=== PATIENT | male | born 1990 | race Caucasian/White ===

== ENCOUNTER 2024-08-19 22:37 | Inpatient (IN) ==
[2024-08-19] MEDS: ONDANSETRON 4 MG/2 ML VIAL IVP STA (23:58)
[2024-08-19] MEDS: SODIUM CHLORIDE 0.9% 500 ML IV ONE (23:58)
[2024-08-20 00:11] LABS: BASOPHILS # (AUTO) 0.1 10^3/uL (0.0-0.1); BASOPHILS % (AUTO) 0.5 %; EOSINOPHILS % (AUTO) 0.1 %; HCT - HEMATOCRIT 61.6 % (42.0-52.0); HGB - HEMOGLOBIN 19.7 g/dL (14.0-18.0); LYMPHOCYTES # (AUTO) 1.3 10^3/uL (1.5-3.5); LYMPHOCYTES % (AUTO) 7.1 %; MEAN CORPUSCULAR VOLUME 84.5 fL (80.0-94.0); MEAN PLATELET VOLUME 12.1 fL (7.4-11.4); MONOCYTES # (AUTO) 0.8 10^3/uL (0.0-1.0); MONOCYTES % (AUTO) 4.4 %; NEUTROPHILS # (AUTO) 15.8 10^3/uL (1.5-6.6); NEUTROPHILS % (AUTO) 87.5 %; PLT - PLATELET COUNT 288 10^3/uL (130-450); RED BLOOD COUNT 7.29 10^6/uL (4.70-6.10); RED CELL DISTRIBUTION WIDTH 15.5 % (12.0-15.0)
[2024-08-20 00:16] LABS: BILIRUBIN,URINE NEGATIVE (NEGATIVE); GLUCOSE, URINE (UA) >=1000 mg/dL (NEGATIVE); KETONES,URINE (UA) 40 mg/dL (NEGATIVE); LEUKOCYTE ESTERASE, URINE NEGATIVE (NEGATIVE); NITRITE,URINE NEGATIVE (NEGATIVE); OCCULT BLOOD,URINE SMALL (NEGATIVE); PH,URINE 5.5 PH (5.0-7.5); PROTEIN,URINE NEGATIVE (NEGATIVE); UROBILINOGEN,URINE 0.2 (NORMAL) E.U./dL (NORMAL)
[2024-08-20 00:18] LABS: CLARITY,URINE CLEAR (CLEAR)
[2024-08-20 00:25] LABS: BACTERIA,URINE Few /HPF (None Seen); SQUAMOUS EPITHELIAL CELL,UR FEW Squamous (<= Few); WBC,URINE 0-3 /HPF (0-3)
[2024-08-20 00:41] LABS: ALBUMIN 4.4 g/dL (3.2-5.5); ALBUMIN/GLOBULIN RATIO 1.2 (1.0-2.2); BILIRUBIN,TOTAL 0.5 mg/dL (0.2-1.0); CREATININE 2.4 mg/dL (0.6-1.3); POTASSIUM 5.9 mmol/L (3.5-4.5)
[2024-08-20 00:57] LABS: B. PARAPERTUSSIS- RESP PCR PAN NOT DETECTED; B. PERTUSSIS- RESP PCR PANEL NOT DETECTED; C. PNEUMONIAE- RESP PCR PANEL NOT DETECTED; CORONAVIRUS 229E-RESP PCR NOT DETECTED; CORONAVIRUS HKU1-RESP PCR NOT DETECTED; CORONAVIRUS NL63-RESP PCR NOT DETECTED; CORONAVIRUS OC43-RESP PCR NOT DETECTED; HUMAN METAPNEUMOVIRUS NOT DETECTED; INFLUENZA A- RESP PCR PANEL NOT DETECTED; INFLUENZA B - RESP PCR PANEL NOT DETECTED; M. PNEUMONIAE- RESP PCR PANEL NOT DETECTED; PARAINFLUENZA VIRUS 1 NOT DETECTED; PARAINFLUENZA VIRUS 2 NOT DETECTED; PARAINFLUENZA VIRUS 3 NOT DETECTED; PARAINFLUENZA VIRUS 4 NOT DETECTED; RHINOVIRUS/ENTEROVIRUS NOT DETECTED; RSV- RESP PCR PANEL NOT DETECTED; SARS-CoV-2 -RESP PCR PANEL NOT DETECTED
[2024-08-20] MEDS: INSULIN REGULAR, HUMAN 300 UNIT/3 ML PEN IVP STA (01:14)
[2024-08-20] MEDS: INSULIN REGULAR IN 0.9 % NS 100 UNIT/100 ML BAG IV STA (01:16)
[2024-08-20 01:20] LABS: VBG PCO2 29.1 mmHg (41-51)
[2024-08-20] MEDS: SODIUM CHLORIDE 0.9% 1,000 ML IV SCH ×2 (01:20→04:00)
[2024-08-20 01:21] LABS: VBG BASE EXCESS -15.9 mmol/L (-2 - +2); VBG HCO3 10.6 mmol/L (23-28); VBG OXYGEN SATURATION 85.8 % (60-80); VBG PO2 56.8 mmHg (25-47); VBG TOTAL CO2 11.5 mmol/L (24-29)
[2024-08-20 01:23] LABS: VBG PH 7.179 (7.31-7.41)
[2024-08-20 01:36] LABS: ESTIMATED AVERAGE GLUCOSE 335 mg/dL (70-100); HEMOGLOBIN A1c% 13.3 % (4.27-6.07)
[2024-08-20 01:53] LABS: ALBUMIN 3.9 g/dL (3.2-5.5); ALBUMIN/GLOBULIN RATIO 1.3 (1.0-2.2); BILIRUBIN,TOTAL 0.6 mg/dL (0.2-1.0); CALCIUM 9.7 mg/dL (8.5-10.3); CREATININE 1.9 mg/dL (0.6-1.3); MAGNESIUM 2.8 mg/dL (1.7-2.3); POTASSIUM 4.9 mmol/L (3.5-4.5)
--- NOTE | 2024-08-20 01:58 | CT Report ---
PROCEDURE: CT Abdomen/Pelvis WO INDICATIONS: Pancreatitis, new onset TECHNIQUE: A CT scan of the abdomen and pelvis was performed without the use of intravenous contrast. Images we re recorded and evaluated at appropriate window settings. Reformats: coronal and sagittal. For radiat ion dose reduction, the following was used: automated exposure control, adjustment of mA and/or kV ac cording to patient size. COMPARISON: None. FINDINGS: Image quality: Diagnostic. Lower chest: Unremarkable. Liver: No contour-deforming mass. The liver is enlarged and demonstrates diffuse fatty infiltration. Gallbladder: Within normal limits. Biliary tree: No intrahepatic or extrahepatic dilation, accounting for age. Spleen: No splenomegaly. An accessory splenule is incidentally noted along the anterior aspect of th e primary spleen. Pancreas: In this patient with this given history, scrutiny is given to the pancreas. No significant peripancreatic inflammatory change can be seen. The pancreatic duct does not appear dilated. No perip ancreatic fluid collections are seen. Adrenals: No adrenal nodule. Kidneys and ureters: No hydronephrosis. No contour-deforming mass. Stomach, bowel and peritoneum: No gastric or small bowel dilation. No abnormal wall thickening. No pa thologic free fluid. A normal appendix is seen. Lymph nodes: No central or retroperitoneal adenopathy. Vessels: No infrarenal aortic aneurysm. Reproductive organs: Unremarkable. Bladder: Bladder wall thickness is normal, accounting for underdistention. No calcified bladder stone s. Pelvic lymph nodes: No adenopathy by size criteria. Bones: No aggressive osseous abnormality. Other: There is a mild fat-containing left inguinal hernia. IMPRESSION: No significant pancreas abnormality is seen on this noncontrast study. No dilated loops of small bowel are seen. Negative for hydronephrosis. Additional findings: Enlarged, fatty infiltrated liver Accessory splenule Normal appendix Mild fat-containing left inguinal hernia. Reviewed by: Krystian Parker MD on 08/20/2024 12:57 AM [facility] Approved by: Krystian Parker MD on 08/20/2024 12:57 AM [facility] Station ID: [id number]
--- NOTE | 2024-08-20 02:25 | ED Physician Documentation ---
History of Present Illness Stated complaint Stated Complaint: FEVER/VOMITING Chief complaint Chief Complaint: Abd Pain Additonal information Additional information: 34-year-old male presents with chief complaint of nausea and vomiting. Accompanied by father who is present at bedside. 4-day history of persistent nausea and vomiting. Denies fever, chest, abdominal pain, diarrhea. Denies unusual foods or known sick contacts. Review of Systems Status of ROS: 10 or more systems reviewed and unremarkable except as noted in history and below Constitutional Denies: Fever or Chills Cardiovascular Denies: chest pain or shortness of breath with exertion Respiratory Denies: Shortness of breath Gastrointestinal Reports: Nausea, Vomiting and Poor appetite; Denies: Abdominal pain, Abdominal distention or Diarrhea Genitourinary Denies: Painful urination Meds/Allgy Allergies Allergies Allergy/AdvReac Type Severity Reaction Status Date / Time No Known Drug Allergies Allergy Verified 08/19/24 22:42 [facility] Social History Social History (Updated 08/20/24 @ 03:10 by Fer Madrid MD) Smoking Status: Current every day smoker Number of Years Smoked: 9 How many cigarettes a day do you smoke? (20 cigarettes=1 Pk): 1 Do you dip or chew tobacco?: No Do you vape?: No Patient requests smoking cessation consult: No Initiate information on smoking cessation: No Relationship: Level: Dependent Substance Use: denies use POLST Patient has POLST: No Exam Exam Vital Signs Temperature 36.5 C 08/20/24 02:33 Pulse Rate 118 H 08/20/24 03:16 Respiratory Rate 20 08/20/24 03:16 Blood Pressure 128/89 08/20/24 03:16 O2 Saturation 96 08/20/24 03:16 Constitutional Patient ill-appearing, laying on side in gurney, makes poor eye contact. HENMT normocephalic and head/scalp atraumatic Eyes PERRL Neck/C-Spine visual inspection normal and trachea midline Lymph no lymphadenopathy noted Chest inspection of chest normal Respiratory breath sounds equal bilaterally, normal respiratory effort, clear to auscultation bilaterally, no wheezes and no rales Cardiovascular normal heart rate noted, regular rhythm noted, no gallop and no murmur Gastrointestinal abdomen soft to palpation, nontender to palpation, nontender to percussion, nondistended and normoactive bowel sounds Genitourinary no CVA tenderness Extremities normal to inspection Psychiatry mental status grossly normal Skin skin color normal Results Vitals Vitals: Vital Signs - 24 hr 08/19/24 22:42 08/19/24 23:07 08/20/24 00:45 Temperature 36.5 C Temperature Source Tympanic Pulse Rate 110 H 123 H 117 H Respiratory Rate 20 16 26 H Blood Pressure 129/91 H 135/89 H 146/100 H O2 Saturation 96 96 96 O2 Source Room air Room air Room air Pain Intensity 4 0 08/20/24 02:00 08/20/24 02:33 Temperature 36.5 C Temperature Source Temporal Artery Scan Pulse Rate 123 H 119 H Respiratory Rate 24 20 Blood Pressure 125/87 138/81 H O2 Saturation 95 95 O2 Source Room air Room air Pain Intensity 0 0 Oxygen O2 Source Room air EKG (time done) 0058: EKG releavant findings:: EKG personally interpreted by author of this note. Relevant findings are: Sinus rhythm with rate 122 bpm. Normal axis. Normal AK, QRS intervals. QTc prolonged at [address] segment elevations or T wave inversions. Labs Labs: Laboratory Tests 08/19/24 08/19/24 08/20/24 00:00 23:40 00:03 WBC 18.0 H RBC 7.29 H Hgb 19.7 H Hct 61.6 H MCV 84.5 MCH 27.0 MCHC 32.0 RDW 15.5 H Plt Count 288 MPV 12.1 H Neut # (Auto) 15.8 H Lymph # (Auto) 1.3 L Hunt # (Auto) 0.8 Eos # (Auto) 0.0 Baso # (Auto) 0.1 Absolute Nucleated RBC 0.00 Nucleated RBC % 0.0 VBG pH VBG pCO2 VBG pO2 VBG HCO3 VBG Total CO2 VBG O2 Saturation VBG Base Excess Sodium 119 L* Potassium 5.9 H Chloride 80 L* Carbon Dioxide 10 L* Anion Gap 29.0 H BUN 40 H Creatinine 2.4 H Estimated GFR (MDRD) 31 L Glucose 1360 H* Estimat Average Glucose Hemoglobin A1c % Calcium 11.0 H Magnesium Total Bilirubin 0.5 AST 15 ALT 36 Alkaline Phosphatase 135 H Total Protein 8.0 Albumin 4.4 Globulin 3.6 Albumin/Globulin Ratio 1.2 Lipase 1294 H Urine Color YELLOW Urine Clarity CLEAR Urine pH 5.5 Ur Specific [place] 1.010 Urine Protein NEGATIVE Urine Glucose (UA) >=1000 H Urine Ketones 40 H Urine Occult Blood SMALL H Urine Nitrite NEGATIVE Urine Bilirubin NEGATIVE Urine Urobilinogen 0.2 (NORMAL) Ur Leukocyte Esterase NEGATIVE Urine RBC 6-10 H Urine WBC 0-3 Ur Squamous Epith Cells FEW Squamous Urine Bacteria Few Ur Microscopic Review INDICATED Urine Culture Comments NOT INDICATED Nasal Adenovirus (PCR) NOT DETECTED Nasal B. parapertussis DNA (PCR) NOT DETECTED Nasal Coronavir 229E PCR NOT DETECTED Nasal Coronavir HKU1 PCR NOT DETECTED Nasal Coronavir NL63 PCR NOT DETECTED Nasal Coronavir OC43 PCR NOT DETECTED Nasal Enterovir/Rhinovir PCR NOT DETECTED Nasal Influenza B PCR NOT DETECTED Nasal Influenza A PCR NOT DETECTED Nasal Parainfluen 1 PCR NOT DETECTED Nasal Parainfluen 2 PCR NOT DETECTED Nasal Parainfluen 3 PCR NOT DETECTED Nasal Parainfluen 4 PCR NOT DETECTED Nasal RSV (PCR) NOT DETECTED Nasal B.pertussis DNA PCR NOT DETECTED Nasal C.pneumoniae (PCR) NOT DETECTED Richard Human Metapneumo PCR NOT DETECTED Nasal M.pneumoniae (PCR) NOT DETECTED Nasal SARS-CoV-2 (PCR) NOT DETECTED 08/20/24 01:09 WBC RBC Hgb Hct MCV MCH MCHC RDW Plt Count MPV Neut # (Auto) Lymph # (Auto) Hunt # (Auto) Eos # (Auto) Baso # (Auto) Absolute Nucleated RBC Nucleated RBC % VBG pH 7.179 L* VBG pCO2 29.1 L VBG pO2 56.8 H VBG HCO3 10.6 L VBG Total CO2 11.5 L VBG O2 Saturation 85.8 H VBG Base Excess -15.9 L Sodium 128 L Potassium 4.9 H Chloride 91 L Carbon Dioxide 10 L* Anion Gap 27.0 H BUN 38 H Creatinine 1.9 H Estimated GFR (MDRD) 41 L Glucose 1123 H* Estimat Average Glucose 335 H Hemoglobin A1c % 13.3 H Calcium 9.7 Magnesium 2.8 H Total Bilirubin 0.6 AST 12 ALT 34 Alkaline Phosphatase 121 Total Protein 7.0 Albumin 3.9 Globulin 3.1 Albumin/Globulin Ratio 1.3 Lipase 1117 H Urine Color Urine Clarity Urine pH Ur Specific [place] Urine Protein Urine Glucose (UA) Urine Ketones Urine Occult Blood Urine Nitrite Urine Bilirubin Urine Urobilinogen Ur Leukocyte Esterase Urine RBC Urine WBC Ur Squamous Epith Cells Urine Bacteria Ur Microscopic Review Urine Culture Comments Nasal Adenovirus (PCR) Nasal B. parapertussis DNA (PCR) Nasal Coronavir 229E PCR Nasal Coronavir HKU1 PCR Nasal Coronavir NL63 PCR Nasal Coronavir OC43 PCR Nasal Enterovir/Rhinovir PCR Nasal Influenza B PCR Nasal Influenza A PCR Nasal Parainfluen 1 PCR Nasal Parainfluen 2 PCR Nasal Parainfluen 3 PCR Nasal Parainfluen 4 PCR Nasal RSV (PCR) Nasal B.pertussis DNA PCR Nasal C.pneumoniae (PCR) Richard Human Metapneumo PCR Nasal M.pneumoniae (PCR) Nasal SARS-CoV-2 (PCR) PD Medical Decision Making ED course Complexity details: reviewed results, re-evaluated patient, considered differential, d/w patient and d/w family Drug Therapy Requiring Monitoring for Toxicity: Insulin ED course: 34-year-old presents with 4-day history nausea vomiting. Low-level tachycardia and somewhat ill-appearing on arrival but otherwise hemodynamically stable. Chest and abdominal exam are benign. His lab subsequently identified him is severely hyperglycemic and in diabetic ketoacidosis. IV hydration and DKA protocol is initiated. Interestingly he does have mild elevation in lipase. There is no epigastric tenderness and no findings of pancreatitis on CT imaging of the abdomen. His care is discussed with the telehospitalist service who graciously agree to hospitalize to our intensive care unit. Critical Care Time(min): 31 Comments: Management of diabetic ketoacidosis Time Includes: Direct patient care, Reassess patient, Document care and Coordinate care Data interpretation: Labs and See progress note Discharge Plan Discharge Patient Disposition: 66 [facility] DC/Xfer Condition: Critical Clinical Impression: Elevated lipase DKA (diabetic ketoacidosis) Qualifiers: Diabetes mellitus type: other specified (including GINNY) Diabetes mellitus complication detail: without coma Qualified Code(s): E13.10 - Other specified diabetes mellitus with ketoacidosis without coma Interventions: ED Admission Assessment Last Done: 08/20/24 04:12
[2024-08-20] MEDS ORDERED: SODIUM CHLORIDE FLUSH 0.9% 10 ML SYRINGE IVP PRN (02:37)
[2024-08-20] MEDS ORDERED: ONDANSETRON 4 MG/2 ML VIAL IVP PRN (02:37)
[2024-08-20] MEDS ORDERED: MORPHINE 10 MG/ML VIAL IVP PRN (02:44)
--- NOTE | 2024-08-20 02:58 | HISTORY & PHYSICAL EXAMINATION ---
Chief Complaint Chief Complaint Chief Complaint: Nausea and vomiting History of Present Illness History of Present Illness HPI Comment/Other: 34 Y old male with no significant PMH came with c/o nausea, vomiting, for about 1 week Denies fever, RAINEY, chest pain, SOB,abdominal pain , diarrhea, constipation, symptoms On presntation, pt was tachycardic Labs showed blood glucose > 1300, HCO3 10, anion gap 27, lipase > 1000 CT abdomen and pelvis showed no acute findings In ER, pt was given IVF and started on insulin gtt per DKA protocol Pt is admitted due to DKA and acute pancreatitis Review of Systems Status of ROS: 10 or more systems reviewed and unremarkable except as noted in history and below PFSH Social History Social History Smoking Status: Unknown if ever smoked Relationship: Do you feel safe in your home environment?: Yes Suffered physical, verbal, emotional, or financial abuse?: No POLST Patient has POLST: No Meds/Allgy Allergies Allergies Allergy/AdvReac Type Severity Reaction Status Date / Time No Known Drug Allergies Allergy Verified 08/19/24 22:42 Exam Exam Vital Signs Temperature 36.5 C 08/20/24 02:33 Pulse Rate 119 H 08/20/24 02:33 Respiratory Rate 20 08/20/24 02:33 Blood Pressure 138/81 H 08/20/24 02:33 O2 Saturation 95 08/20/24 02:33 Constitutional normal general appearance HENMT normocephalic Eyes PERRL Neck/C-Spine abnormal to visual inspection Chest inspection of chest normal Respiratory breath sounds equal bilaterally Cardiovascular tachycardia Gastrointestinal nontender to palpation Extremities normal to inspection Neurology no focal motor deficit noted Skin no rash Conclusion/Plan Problem List (1) DKA (diabetic ketoacidosis): Plan: A: DKA Acute pancreatitis Nausea, vomiting Abdominal pain Hyponatremia Dehydartion MARY Plan: Admit in ICU Start DKA protocol Insulin infusion per protocol strat NS @ 150 cc/h Monitor blood glucose q1h Monitor BMP q2h Morphine iv prn Zofran iv prn DVT prophylaxic: SCD Full code Pt is admitted as inpatient as more than 2 midnight stay is expected Qualifiers: Diabetes mellitus complication detail: without coma Diabetes mellitus type: other specified (including GINNY) Qualified Code(s): E13.10 - Other specified diabetes mellitus with ketoacidosis without coma Lab Results 08/19/24 00:00 08/20/24 01:09
[2024-08-20 03:59] LABS: CALCIUM 9.6 mg/dL (8.5-10.3); CREATININE 1.8 mg/dL (0.6-1.3); MAGNESIUM 2.9 mg/dL (1.7-2.3); POTASSIUM 3.8 mmol/L (3.5-4.5)
[2024-08-20] MEDS: POTASSIUM CHLOR 20 MEQ/100 ML 20 MEQ/100 ML BAG IV ONE (04:32)
[2024-08-20] MEDS: POTASSIUM CHLOR 10 MEQ/100 ML 10 MEQ/100 ML BAG IV SCH ×3 (04:53→22:19)
[2024-08-20 05:25] LABS: BASOPHILS # (AUTO) 0.1 10^3/uL (0.0-0.1); BASOPHILS % (AUTO) 0.4 %; HCT - HEMATOCRIT 53.1 % (42.0-52.0); HGB - HEMOGLOBIN 19.1 g/dL (14.0-18.0); LYMPHOCYTES # (AUTO) 2.2 10^3/uL (1.5-3.5); LYMPHOCYTES % (AUTO) 13.7 %; MEAN CORPUSCULAR HEMOGLOBIN 28.4 pg (27.0-31.0); MEAN PLATELET VOLUME 11.1 fL (7.4-11.4); MONOCYTES # (AUTO) 1.1 10^3/uL (0.0-1.0); MONOCYTES % (AUTO) 6.8 %; NEUTROPHILS # (AUTO) 12.5 10^3/uL (1.5-6.6); NEUTROPHILS % (AUTO) 78.7 %; PLT - PLATELET COUNT 214 10^3/uL (130-450); RED BLOOD COUNT 6.72 10^6/uL (4.70-6.10); RED CELL DISTRIBUTION WIDTH 13.6 % (12.0-15.0); WHITE BLOOD COUNT 15.9 x10^3/uL (4.8-10.8)
[2024-08-20 05:45] LABS: BILIRUBIN,URINE NEGATIVE (NEGATIVE); GLUCOSE, URINE (UA) >=1000 mg/dL (NEGATIVE); KETONES,URINE (UA) >=80 mg/dL (NEGATIVE); LEUKOCYTE ESTERASE, URINE NEGATIVE (NEGATIVE); NITRITE,URINE NEGATIVE (NEGATIVE); OCCULT BLOOD,URINE MODERATE (NEGATIVE); PH,URINE 5.5 PH (5.0-7.5); PROTEIN,URINE TRACE mg/dL (NEGATIVE); UROBILINOGEN,URINE 0.2 (NORMAL) E.U./dL (NORMAL)
[2024-08-20 05:46] LABS: CALCIUM 9.4 mg/dL (8.5-10.3); CREATININE 1.6 mg/dL (0.6-1.3); MAGNESIUM 2.7 mg/dL (1.7-2.3); POTASSIUM 4.1 mmol/L (3.5-4.5)
[2024-08-20 05:57] LABS: CLARITY,URINE CLEAR (CLEAR); HCG UR QUAL NEGATIVE
[2024-08-20 05:58] LABS: BACTERIA,URINE Few /HPF (None Seen); CASTS, URINE 0-2 Granular Casts /LPF; RBC,URINE 0-5 /HPF (0-5); SQUAMOUS EPITHELIAL CELL,UR RARE Squamous (<= Few); WBC,URINE 0-3 /HPF (0-3)
[2024-08-20] MEDS: MORPHINE 2 MG/ML CARPUJECT IVP PRN (06:16)
[2024-08-20] MEDS: SODIUM CHLORIDE FLUSH 0.9% 10 ML SYRINGE IVP SCH (09:56)
[2024-08-20] MEDS: POTASSIUM CHLOR 10 MEQ/100 ML 10 MEQ/100 ML BAG IV ONE (11:05)
[2024-08-20] MEDS ORDERED: POTASSIUM CHLOR 10 MEQ/100 ML 10 MEQ/100 ML BAG IV ONE ×3 (12:00→15:32)
[2024-08-20 14:39] LABS: MAGNESIUM 2.5 mg/dL (1.7-2.3); PHOSPHORUS 1.1 mg/dL (2.5-5.0); POTASSIUM 3.8 mmol/L (3.5-4.5)
--- NOTE | 2024-08-20 14:39 | PHARMACY PROGRESS NOTE ---
Best Possible Medication History Admit Date and Time: 08/20/24 0237 [facility] Statement: As the person ultimately responsible for medication therapy, providers are able to order a medication from an existing home medication list in [facility] via the "Reconcile Routine" prior to Confirmation of that medication by community support associate. Such practice is discouraged except when the physician, in their clinical judgment, deems that a medical need exists for a medication without regard to previous use.
--- NOTE | 2024-08-20 15:35 | PROVIDER PROGRESS NOTE ---
Subjective Prog Note Date Prog Note Date: 08/20/24 Prog Note Time: 15:23 Subjective Pt reports feeling: Improved Subjective: 34 Y old male with no significant PMH came with c/o nausea, vomiting, for about 1 week Denies fever, RAINEY, chest pain, SOB,abdominal pain , diarrhea, constipation, symptoms On presntation, pt was tachycardic Labs showed blood glucose > 1300, HCO3 10, anion gap 27, lipase > 1000 CT abdomen and pelvis showed no acute findings In ER, pt was given IVF and started on insulin gtt per DKA protocol Pt is admitted due to DKA and acute pancreatitis Patient's family reports that here is a family history of diabetes. Father and younger brother Both have diabetes type 2. 08/20/2024: Patient still obtunded and lethargic. But he is slowly improving. Current Medications Current Medications Current Medications: Current Medications Generic Name Dose Route Start Last Admin Trade Name Freq PRN Reason Stop Dose Admin Sodium Chloride 1,000 mls @ 150 mls/hr 08/20/24 03:00 08/20/24 10:45 Normal Saline 0.9% IV 150 mls/hr .[id number] EMILIANA Administration Insulin Human Regular 100 unit in 100 mls @ 9.525 mls/hr 08/20/24 03:00 Myxredlin 100 Unit/100 Ml Bag IV .[id number] EMILIANA Protocol 0.1 UNIT/KG/HR Morphine Sulfate 2 mg 08/20/24 02:58 08/20/24 06:16 Morphine 2 Mg/Ml Carpuject IVP 2 mg Q6H PRN Administration prn pain >8 Ondansetron HCl 4 mg 08/20/24 02:37 Ondansetron 4 Mg/2 Ml Vial IVP Q6HR PRN Nausea / Vomiting Sodium Chloride 10 ml 08/20/24 09:00 08/20/24 09:56 Sodium Chloride Flush 0.9% 10 Ml Syringe IVP 10 ml 0100,0900,1700 EMILIANA Administration Sodium Chloride 10 ml 08/20/24 02:37 Sodium Chloride Flush 0.9% 10 Ml Syringe IVP PRN PRN NEEDED PER PROVIDER ORDERS Objective Vital Signs/Intake & Output Reviewed Vital Signs: Yes Vital Signs: Vital Signs x48h Temp Pulse Resp BP Pulse Ox 08/20/24 11:00 122 H 21 123/82 94 08/20/24 10:00 122 H 19 124/78 94 08/20/24 08:00 36.5 C 116 H 13 112/72 92 Intake & Output: Intake & Output 08/18/24 08/19/24 08/20/24 08/21/24 05:59 05:59 05:59 05:59 Intake Total 3215 / 3215 1338 / 1338 Output Total 2125 / 2125 500 / 500 Balance 1090 / 1090 838 / 838 Weight (kg) 92 kg 92 kg Objective General Appearance: positive Lethargic Eyes Bilateral: positive Normal inspection and PERRL ENT: positive ENT inspection nml and Pharynx nml Neck: positive Nml inspection and Trachea midline Respiratory: positive Chest non-tender and No respiratory distress Cardiovascular: positive No murmur, No gallop and Other (Sinus tach) Abdomen: positive Non-tender, No organomegaly and No distention Skin: positive Color nml, No rash and Warm Extremities: positive Non-tender and Full ROM Neurologic/Psychiatric: positive Other (Unable to assess, patient is obtunded, lethargic. Unable to stay awake.) Lab Results 08/20/24 05:10 08/20/24 14:15 Other Labs: Lab Results x24hrs 08/20/24 08/20/24 08/20/24 Range/Units 15:01 14:15 14:12 WBC (4.8-10.8) x10^3/uL RBC (4.70-6.10) 10^6/uL Hgb (14.0-18.0) g/dL Hct (42.0-52.0) % MCV (80.0-94.0) fL MCH (27.0-31.0) pg MCHC (32.0-36.0) g/dL RDW (12.0-15.0) % Plt Count (130-450) 10^3/uL MPV (7.4-11.4) fL Neut # (Auto) (1.5-6.6) 10^3/uL Lymph # (Auto) (1.5-3.5) 10^3/uL [place] # (Auto) (0.0-1.0) 10^3/uL Eos # (Auto) (0.0-0.7) 10^3/uL Baso # (Auto) (0.0-0.1) 10^3/uL Absolute Nucleated RBC x10^3/uL Nucleated RBC % /100WBC VBG pH (7.31-7.41) VBG pCO2 (41-51) mmHg VBG pO2 (25-47) mmHg VBG HCO3 (23-28) mmol/L VBG Total CO2 (24-29) mmol/L VBG O2 Saturation (60-80) % VBG Base Excess (-2 - +2) mmol/L Sodium (135-145) mmol/L Potassium 3.8 (3.5-4.5) mmol/L Chloride (101-111) mmol/L Carbon Dioxide (21-32) mmol/L Anion Gap (6-13) BUN (6-20) mg/dL Creatinine (0.6-1.3) mg/dL Estimated GFR (MDRD) (>89) Glucose (74-104) mg/dL POC Whole Bld Glucose 250 316 (70-100) mg/dL Estimat Average Glucose (70-100) mg/dL Hemoglobin A1c % (4.27-6.07) % Calcium (8.5-10.3) mg/dL Phosphorus 1.1 L (2.5-5.0) mg/dL Magnesium 2.5 H (1.7-2.3) mg/dL Total Bilirubin (0.2-1.0) mg/dL AST (10-42) IU/L ALT (10-60) IU/L Alkaline Phosphatase (42-121) IU/L Total Protein (6.4-8.9) g/dL Albumin (3.2-5.5) g/dL Globulin (2.1-4.2) g/dL Albumin/Globulin Ratio (1.0-2.2) Lipase (11-82) U/L Urine Color Urine Clarity (CLEAR) Urine pH (5.0-7.5) PH Ur Specific Pace (1.002-1.030) Urine Protein (NEGATIVE) mg/dL Urine Glucose (UA) (NEGATIVE) mg/dL Urine Ketones (NEGATIVE) mg/dL Urine Occult Blood (NEGATIVE) Urine Nitrite (NEGATIVE) Urine Bilirubin (NEGATIVE) Urine Urobilinogen (NORMAL) E.U./dL Ur Leukocyte Esterase (NEGATIVE) Urine RBC (0-5) /HPF Urine WBC (0-3) /HPF Ur Squamous Epith Cells (<= Few) Urine Bacteria (None Seen) /HPF Urine Casts /LPF Ur Microscopic Review Urine Culture Comments Urine HCG, Qual Nasal Adenovirus (PCR) Nasal B. parapertussis DNA (PCR) Nasal Coronavir 229E PCR Nasal Coronavir HKU1 PCR Nasal Coronavir NL63 PCR Nasal Coronavir OC43 PCR Nasal Enterovir/Rhinovir PCR Nasal Influenza B PCR Nasal Influenza A PCR Nasal Parainfluen 1 PCR Nasal Parainfluen 2 PCR Nasal Parainfluen 3 PCR Nasal Parainfluen 4 PCR Nasal RSV (PCR) Nasal Screen MRSA (PCR) (NEGATIVE) Nasal B.pertussis DNA PCR Nasal C.pneumoniae (PCR) Richard Human Metapneumo PCR Nasal M.pneumoniae (PCR) Nasal SARS-CoV-2 (PCR) 08/20/24 08/20/24 08/20/24 Range/Units 13:12 12:07 11:09 WBC (4.8-10.8) x10^3/uL RBC (4.70-6.10) 10^6/uL Hgb (14.0-18.0) g/dL Hct (42.0-52.0) % MCV (80.0-94.0) fL MCH (27.0-31.0) pg MCHC (32.0-36.0) g/dL RDW (12.0-15.0) % Plt Count (130-450) 10^3/uL MPV (7.4-11.4) fL Neut # (Auto) (1.5-6.6) 10^3/uL Lymph # (Auto) (1.5-3.5) 10^3/uL [place] # (Auto) (0.0-1.0) 10^3/uL Eos # (Auto) (0.0-0.7) 10^3/uL Baso # (Auto) (0.0-0.1) 10^3/uL Absolute Nucleated RBC x10^3/uL Nucleated RBC % /100WBC VBG pH (7.31-7.41) VBG pCO2 (41-51) mmHg VBG pO2 (25-47) mmHg VBG HCO3 (23-28) mmol/L VBG Total CO2 (24-29) mmol/L VBG O2 Saturation (60-80) % VBG Base Excess (-2 - +2) mmol/L Sodium (135-145) mmol/L Potassium (3.5-4.5) mmol/L Chloride (101-111) mmol/L Carbon Dioxide (21-32) mmol/L Anion Gap (6-13) BUN (6-20) mg/dL Creatinine (0.6-1.3) mg/dL Estimated GFR (MDRD) (>89) Glucose (74-104) mg/dL POC Whole Bld Glucose 332 357 385 (70-100) mg/dL Estimat Average Glucose (70-100) mg/dL Hemoglobin A1c % (4.27-6.07) % Calcium (8.5-10.3) mg/dL Phosphorus (2.5-5.0) mg/dL Magnesium (1.7-2.3) mg/dL Total Bilirubin (0.2-1.0) mg/dL AST (10-42) IU/L ALT (10-60) IU/L Alkaline Phosphatase (42-121) IU/L Total Protein (6.4-8.9) g/dL Albumin (3.2-5.5) g/dL Globulin (2.1-4.2) g/dL Albumin/Globulin Ratio (1.0-2.2) Lipase (11-82) U/L Urine Color Urine Clarity (CLEAR) Urine pH (5.0-7.5) PH Ur Specific Pace (1.002-1.030) Urine Protein (NEGATIVE) mg/dL Urine Glucose (UA) (NEGATIVE) mg/dL Urine Ketones (NEGATIVE) mg/dL Urine Occult Blood (NEGATIVE) Urine Nitrite (NEGATIVE) Urine Bilirubin (NEGATIVE) Urine Urobilinogen (NORMAL) E.U./dL Ur Leukocyte Esterase (NEGATIVE) Urine RBC (0-5) /HPF Urine WBC (0-3) /HPF Ur Squamous Epith Cells (<= Few) Urine Bacteria (None Seen) /HPF Urine Casts /LPF Ur Microscopic Review Urine Culture Comments Urine HCG, Qual Nasal Adenovirus (PCR) Nasal B. parapertussis DNA (PCR) Nasal Coronavir 229E PCR Nasal Coronavir HKU1 PCR Nasal Coronavir NL63 PCR Nasal Coronavir OC43 PCR Nasal Enterovir/Rhinovir PCR Nasal Influenza B PCR Nasal Influenza A PCR Nasal Parainfluen 1 PCR Nasal Parainfluen 2 PCR Nasal Parainfluen 3 PCR Nasal Parainfluen 4 PCR Nasal RSV (PCR) Nasal Screen MRSA (PCR) (NEGATIVE) Nasal B.pertussis DNA PCR Nasal C.pneumoniae (PCR) Richard Human Metapneumo PCR Nasal M.pneumoniae (PCR) Nasal SARS-CoV-2 (PCR) 08/20/24 08/20/24 08/20/24 Range/Units 10:00 09:01 08:40 WBC (4.8-10.8) x10^3/uL RBC (4.70-6.10) 10^6/uL Hgb (14.0-18.0) g/dL Hct (42.0-52.0) % MCV (80.0-94.0) fL MCH (27.0-31.0) pg MCHC (32.0-36.0) g/dL RDW (12.0-15.0) % Plt Count (130-450) 10^3/uL MPV (7.4-11.4) fL Neut # (Auto) (1.5-6.6) 10^3/uL Lymph # (Auto) (1.5-3.5) 10^3/uL [place] # (Auto) (0.0-1.0) 10^3/uL Eos # (Auto) (0.0-0.7) 10^3/uL Baso # (Auto) (0.0-0.1) 10^3/uL Absolute Nucleated RBC x10^3/uL Nucleated RBC % /100WBC VBG pH (7.31-7.41) VBG pCO2 (41-51) mmHg VBG pO2 (25-47) mmHg VBG HCO3 (23-28) mmol/L VBG Total CO2 (24-29) mmol/L VBG O2 Saturation (60-80) % VBG Base Excess (-2 - +2) mmol/L Sodium (135-145) mmol/L Potassium 4.1 (3.5-4.5) mmol/L Chloride (101-111) mmol/L Carbon Dioxide (21-32) mmol/L Anion Gap (6-13) BUN (6-20) mg/dL Creatinine (0.6-1.3) mg/dL Estimated GFR (MDRD) (>89) Glucose (74-104) mg/dL POC Whole Bld Glucose 358 466 (70-100) mg/dL Estimat Average Glucose (70-100) mg/dL Hemoglobin A1c % (4.27-6.07) % Calcium (8.5-10.3) mg/dL Phosphorus (2.5-5.0) mg/dL Magnesium (1.7-2.3) mg/dL Total Bilirubin (0.2-1.0) mg/dL AST (10-42) IU/L ALT (10-60) IU/L Alkaline Phosphatase (42-121) IU/L Total Protein (6.4-8.9) g/dL Albumin (3.2-5.5) g/dL Globulin (2.1-4.2) g/dL Albumin/Globulin Ratio (1.0-2.2) Lipase (11-82) U/L Urine Color Urine Clarity (CLEAR) Urine pH (5.0-7.5) PH Ur Specific Pace (1.002-1.030) Urine Protein (NEGATIVE) mg/dL Urine Glucose (UA) (NEGATIVE) mg/dL Urine Ketones (NEGATIVE) mg/dL Urine Occult Blood (NEGATIVE) Urine Nitrite (NEGATIVE) Urine Bilirubin (NEGATIVE) Urine Urobilinogen (NORMAL) E.U./dL Ur Leukocyte Esterase (NEGATIVE) Urine RBC (0-5) /HPF Urine WBC (0-3) /HPF Ur Squamous Epith Cells (<= Few) Urine Bacteria (None Seen) /HPF Urine Casts /LPF Ur Microscopic Review Urine Culture Comments Urine HCG, Qual Nasal Adenovirus (PCR) Nasal B. parapertussis DNA (PCR) Nasal Coronavir 229E PCR Nasal Coronavir HKU1 PCR Nasal Coronavir NL63 PCR Nasal Coronavir OC43 PCR Nasal Enterovir/Rhinovir PCR Nasal Influenza B PCR Nasal Influenza A PCR Nasal Parainfluen 1 PCR Nasal Parainfluen 2 PCR Nasal Parainfluen 3 PCR Nasal Parainfluen 4 PCR Nasal RSV (PCR) Nasal Screen MRSA (PCR) (NEGATIVE) Nasal B.pertussis DNA PCR Nasal C.pneumoniae (PCR) Richard Human Metapneumo PCR Nasal M.pneumoniae (PCR) Nasal SARS-CoV-2 (PCR) 08/20/24 08/20/24 08/20/24 Range/Units 07:59 06:24 05:10 WBC 15.9 H (4.8-10.8) x10^3/uL RBC 6.72 H (4.70-6.10) 10^6/uL Hgb 19.1 H (14.0-18.0) g/dL Hct 53.1 H (42.0-52.0) % MCV 79.0 L (80.0-94.0) fL MCH 28.4 (27.0-31.0) pg MCHC 36.0 (32.0-36.0) g/dL RDW 13.6 (12.0-15.0) % Plt Count 214 (130-450) 10^3/uL MPV 11.1 (7.4-11.4) fL Neut # (Auto) 12.5 H (1.5-6.6) 10^3/uL Lymph # (Auto) 2.2 (1.5-3.5) 10^3/uL [place] # (Auto) 1.1 H (0.0-1.0) 10^3/uL Eos # (Auto) 0.0 (0.0-0.7) 10^3/uL Baso # (Auto) 0.1 (0.0-0.1) 10^3/uL Absolute Nucleated RBC 0.00 x10^3/uL Nucleated RBC % 0.0 /100WBC VBG pH (7.31-7.41) VBG pCO2 (41-51) mmHg VBG pO2 (25-47) mmHg VBG HCO3 (23-28) mmol/L VBG Total CO2 (24-29) mmol/L VBG O2 Saturation (60-80) % VBG Base Excess (-2 - +2) mmol/L Sodium 140 (135-145) mmol/L Potassium 4.1 (3.5-4.5) mmol/L Chloride 107 (101-111) mmol/L Carbon Dioxide 13 L (21-32) mmol/L Anion Gap 20.0 H (6-13) BUN 30 H (6-20) mg/dL Creatinine 1.6 H (0.6-1.3) mg/dL Estimated GFR (MDRD) 50 L (>89) Glucose 566 H* (74-104) mg/dL POC Whole Bld Glucose 460 496 (70-100) mg/dL Estimat Average Glucose (70-100) mg/dL Hemoglobin A1c % (4.27-6.07) % Calcium 9.4 (8.5-10.3) mg/dL Phosphorus (2.5-5.0) mg/dL Magnesium 2.7 H (1.7-2.3) mg/dL Total Bilirubin (0.2-1.0) mg/dL AST (10-42) IU/L ALT (10-60) IU/L Alkaline Phosphatase (42-121) IU/L Total Protein (6.4-8.9) g/dL Albumin (3.2-5.5) g/dL Globulin (2.1-4.2) g/dL Albumin/Globulin Ratio (1.0-2.2) Lipase 1725 H (11-82) U/L Urine Color Urine Clarity (CLEAR) Urine pH (5.0-7.5) PH Ur Specific Pace (1.002-1.030) Urine Protein (NEGATIVE) mg/dL Urine Glucose (UA) (NEGATIVE) mg/dL Urine Ketones (NEGATIVE) mg/dL Urine Occult Blood (NEGATIVE) Urine Nitrite (NEGATIVE) Urine Bilirubin (NEGATIVE) Urine Urobilinogen (NORMAL) E.U./dL Ur Leukocyte Esterase (NEGATIVE) Urine RBC (0-5) /HPF Urine WBC (0-3) /HPF Ur Squamous Epith Cells (<= Few) Urine Bacteria (None Seen) /HPF Urine Casts /LPF Ur Microscopic Review Urine Culture Comments Urine HCG, Qual Nasal Adenovirus (PCR) Nasal B. parapertussis DNA (PCR) Nasal Coronavir 229E PCR Nasal Coronavir HKU1 PCR Nasal Coronavir NL63 PCR Nasal Coronavir OC43 PCR Nasal Enterovir/Rhinovir PCR Nasal Influenza B PCR Nasal Influenza A PCR Nasal Parainfluen 1 PCR Nasal Parainfluen 2 PCR Nasal Parainfluen 3 PCR Nasal Parainfluen 4 PCR Nasal RSV (PCR) Nasal Screen MRSA (PCR) (NEGATIVE) Nasal B.pertussis DNA PCR Nasal C.pneumoniae (PCR) Richard Human Metapneumo PCR Nasal M.pneumoniae (PCR) Nasal SARS-CoV-2 (PCR) 08/20/24 08/20/24 08/20/24 Range/Units 04:55 04:00 03:00 WBC (4.8-10.8) x10^3/uL RBC (4.70-6.10) 10^6/uL Hgb (14.0-18.0) g/dL Hct (42.0-52.0) % MCV (80.0-94.0) fL MCH (27.0-31.0) pg MCHC (32.0-36.0) g/dL RDW (12.0-15.0) % Plt Count (130-450) 10^3/uL MPV (7.4-11.4) fL Neut # (Auto) (1.5-6.6) 10^3/uL Lymph # (Auto) (1.5-3.5) 10^3/uL [place] # (Auto) (0.0-1.0) 10^3/uL Eos # (Auto) (0.0-0.7) 10^3/uL Baso # (Auto) (0.0-0.1) 10^3/uL Absolute Nucleated RBC x10^3/uL Nucleated RBC % /100WBC VBG pH (7.31-7.41) VBG pCO2 (41-51) mmHg VBG pO2 (25-47) mmHg VBG HCO3 (23-28) mmol/L VBG Total CO2 (24-29) mmol/L VBG O2 Saturation (60-80) % VBG Base Excess (-2 - +2) mmol/L Sodium 136 (135-145) mmol/L Potassium 3.8 (3.5-4.5) mmol/L Chloride 102 (101-111) mmol/L Carbon Dioxide 9 L* (21-32) mmol/L Anion Gap 25.0 H (6-13) BUN 36 H (6-20) mg/dL Creatinine 1.8 H (0.6-1.3) mg/dL Estimated GFR (MDRD) 43 L (>89) Glucose 811 H* (74-104) mg/dL POC Whole Bld Glucose (70-100) mg/dL Estimat Average Glucose (70-100) mg/dL Hemoglobin A1c % (4.27-6.07) % Calcium 9.6 (8.5-10.3) mg/dL Phosphorus (2.5-5.0) mg/dL Magnesium 2.9 H (1.7-2.3) mg/dL Total Bilirubin (0.2-1.0) mg/dL AST (10-42) IU/L ALT (10-60) IU/L Alkaline Phosphatase (42-121) IU/L Total Protein (6.4-8.9) g/dL Albumin (3.2-5.5) g/dL Globulin (2.1-4.2) g/dL Albumin/Globulin Ratio (1.0-2.2) Lipase (11-82) U/L Urine Color YELLOW Urine Clarity CLEAR (CLEAR) Urine pH 5.5 (5.0-7.5) PH Ur Specific Pace 1.025 (1.002-1.030) Urine Protein TRACE (NEGATIVE) mg/dL Urine Glucose (UA) >=1000 H (NEGATIVE) mg/dL Urine Ketones >=80 H (NEGATIVE) mg/dL Urine Occult Blood MODERATE H (NEGATIVE) Urine Nitrite NEGATIVE (NEGATIVE) Urine Bilirubin NEGATIVE (NEGATIVE) Urine Urobilinogen 0.2 (NORMAL) (NORMAL) E.U./dL Ur Leukocyte Esterase NEGATIVE (NEGATIVE) Urine RBC 0-5 (0-5) /HPF Urine WBC 0-3 (0-3) /HPF Ur Squamous Epith Cells RARE Squamous (<= Few) Urine Bacteria Few (None Seen) /HPF Urine Casts 0-2 Granular Casts /LPF Ur Microscopic Review INDICATED Urine Culture Comments NOT INDICATED Urine HCG, Qual NEGATIVE Nasal Adenovirus (PCR) Nasal B. parapertussis DNA (PCR) Nasal Coronavir 229E PCR Nasal Coronavir HKU1 PCR Nasal Coronavir NL63 PCR Nasal Coronavir OC43 PCR Nasal Enterovir/Rhinovir PCR Nasal Influenza B PCR Nasal Influenza A PCR Nasal Parainfluen 1 PCR Nasal Parainfluen 2 PCR Nasal Parainfluen 3 PCR Nasal Parainfluen 4 PCR Nasal RSV (PCR) Nasal Screen MRSA (PCR) NEGATIVE (NEGATIVE) Nasal B.pertussis DNA PCR Nasal C.pneumoniae (PCR) Richard Human Metapneumo PCR Nasal M.pneumoniae (PCR) Nasal SARS-CoV-2 (PCR) 08/20/24 08/20/24 08/19/24 Range/Units 01:09 00:03 23:40 WBC (4.8-10.8) x10^3/uL RBC (4.70-6.10) 10^6/uL Hgb (14.0-18.0) g/dL Hct (42.0-52.0) % MCV (80.0-94.0) fL MCH (27.0-31.0) pg MCHC (32.0-36.0) g/dL RDW (12.0-15.0) % Plt Count (130-450) 10^3/uL MPV (7.4-11.4) fL Neut # (Auto) (1.5-6.6) 10^3/uL Lymph # (Auto) (1.5-3.5) 10^3/uL [place] # (Auto) (0.0-1.0) 10^3/uL Eos # (Auto) (0.0-0.7) 10^3/uL Baso # (Auto) (0.0-0.1) 10^3/uL Absolute Nucleated RBC x10^3/uL Nucleated RBC % /100WBC VBG pH 7.179 L* (7.31-7.41) VBG pCO2 29.1 L (41-51) mmHg VBG pO2 56.8 H (25-47) mmHg VBG HCO3 10.6 L (23-28) mmol/L VBG Total CO2 11.5 L (24-29) mmol/L VBG O2 Saturation 85.8 H (60-80) % VBG Base Excess -15.9 L (-2 - +2) mmol/L Sodium 128 L (135-145) mmol/L Potassium 4.9 H (3.5-4.5) mmol/L Chloride 91 L (101-111) mmol/L Carbon Dioxide 10 L* (21-32) mmol/L Anion Gap 27.0 H (6-13) BUN 38 H (6-20) mg/dL Creatinine 1.9 H (0.6-1.3) mg/dL Estimated GFR (MDRD) 41 L (>89) Glucose 1123 H* (74-104) mg/dL POC Whole Bld Glucose (70-100) mg/dL Estimat Average Glucose 335 H (70-100) mg/dL Hemoglobin A1c % 13.3 H (4.27-6.07) % Calcium 9.7 (8.5-10.3) mg/dL Phosphorus (2.5-5.0) mg/dL Magnesium 2.8 H (1.7-2.3) mg/dL Total Bilirubin 0.6 (0.2-1.0) mg/dL AST 12 (10-42) IU/L ALT 34 (10-60) IU/L Alkaline Phosphatase 121 (42-121) IU/L Total Protein 7.0 (6.4-8.9) g/dL Albumin 3.9 (3.2-5.5) g/dL Globulin 3.1 (2.1-4.2) g/dL Albumin/Globulin Ratio 1.3 (1.0-2.2) Lipase 1117 H (11-82) U/L Urine Color YELLOW Urine Clarity CLEAR (CLEAR) Urine pH 5.5 (5.0-7.5) PH Ur Specific Pace 1.010 (1.002-1.030) Urine Protein NEGATIVE (NEGATIVE) mg/dL Urine Glucose (UA) >=1000 H (NEGATIVE) mg/dL Urine Ketones 40 H (NEGATIVE) mg/dL Urine Occult Blood SMALL H (NEGATIVE) Urine Nitrite NEGATIVE (NEGATIVE) Urine Bilirubin NEGATIVE (NEGATIVE) Urine Urobilinogen 0.2 (NORMAL) (NORMAL) E.U./dL Ur Leukocyte Esterase NEGATIVE (NEGATIVE) Urine RBC 6-10 H (0-5) /HPF Urine WBC 0-3 (0-3) /HPF Ur Squamous Epith Cells FEW Squamous (<= Few) Urine Bacteria Few (None Seen) /HPF Urine Casts /LPF Ur Microscopic Review INDICATED Urine Culture Comments NOT INDICATED Urine HCG, Qual Nasal Adenovirus (PCR) NOT DETECTED Nasal B. parapertussis DNA (PCR) NOT DETECTED Nasal Coronavir 229E PCR NOT DETECTED Nasal Coronavir HKU1 PCR NOT DETECTED Nasal Coronavir NL63 PCR NOT DETECTED Nasal Coronavir OC43 PCR NOT DETECTED Nasal Enterovir/Rhinovir PCR NOT DETECTED Nasal Influenza B PCR NOT DETECTED Nasal Influenza A PCR NOT DETECTED Nasal Parainfluen 1 PCR NOT DETECTED Nasal Parainfluen 2 PCR NOT DETECTED Nasal Parainfluen 3 PCR NOT DETECTED Nasal Parainfluen 4 PCR NOT DETECTED Nasal RSV (PCR) NOT DETECTED Nasal Screen MRSA (PCR) (NEGATIVE) Nasal B.pertussis DNA PCR NOT DETECTED Nasal C.pneumoniae (PCR) NOT DETECTED Richard Human Metapneumo PCR NOT DETECTED Nasal M.pneumoniae (PCR) NOT DETECTED Nasal SARS-CoV-2 (PCR) NOT DETECTED 08/19/24 Range/Units 00:00 WBC 18.0 H (4.8-10.8) x10^3/uL RBC 7.29 H (4.70-6.10) 10^6/uL Hgb 19.7 H (14.0-18.0) g/dL Hct 61.6 H (42.0-52.0) % MCV 84.5 (80.0-94.0) fL MCH 27.0 (27.0-31.0) pg MCHC 32.0 (32.0-36.0) g/dL RDW 15.5 H (12.0-15.0) % Plt Count 288 (130-450) 10^3/uL MPV 12.1 H (7.4-11.4) fL Neut # (Auto) 15.8 H (1.5-6.6) 10^3/uL Lymph # (Auto) 1.3 L (1.5-3.5) 10^3/uL [place] # (Auto) 0.8 (0.0-1.0) 10^3/uL Eos # (Auto) 0.0 (0.0-0.7) 10^3/uL Baso # (Auto) 0.1 (0.0-0.1) 10^3/uL Absolute Nucleated RBC 0.00 x10^3/uL Nucleated RBC % 0.0 /100WBC VBG pH (7.31-7.41) VBG pCO2 (41-51) mmHg VBG pO2 (25-47) mmHg VBG HCO3 (23-28) mmol/L VBG Total CO2 (24-29) mmol/L VBG O2 Saturation (60-80) % VBG Base Excess (-2 - +2) mmol/L Sodium 119 L* (135-145) mmol/L Potassium 5.9 H (3.5-4.5) mmol/L Chloride 80 L* (101-111) mmol/L Carbon Dioxide 10 L* (21-32) mmol/L Anion Gap 29.0 H (6-13) BUN 40 H (6-20) mg/dL Creatinine 2.4 H (0.6-1.3) mg/dL Estimated GFR (MDRD) 31 L (>89) Glucose 1360 H* (74-104) mg/dL POC Whole Bld Glucose (70-100) mg/dL Estimat Average Glucose (70-100) mg/dL Hemoglobin A1c % (4.27-6.07) % Calcium 11.0 H (8.5-10.3) mg/dL Phosphorus (2.5-5.0) mg/dL Magnesium (1.7-2.3) mg/dL Total Bilirubin 0.5 (0.2-1.0) mg/dL AST 15 (10-42) IU/L ALT 36 (10-60) IU/L Alkaline Phosphatase 135 H (42-121) IU/L Total Protein 8.0 (6.4-8.9) g/dL Albumin 4.4 (3.2-5.5) g/dL Globulin 3.6 (2.1-4.2) g/dL Albumin/Globulin Ratio 1.2 (1.0-2.2) Lipase 1294 H (11-82) U/L Urine Color Urine Clarity (CLEAR) Urine pH (5.0-7.5) PH Ur Specific Pace (1.002-1.030) Urine Protein (NEGATIVE) mg/dL Urine Glucose (UA) (NEGATIVE) mg/dL Urine Ketones (NEGATIVE) mg/dL Urine Occult Blood (NEGATIVE) Urine Nitrite (NEGATIVE) Urine Bilirubin (NEGATIVE) Urine Urobilinogen (NORMAL) E.U./dL Ur Leukocyte Esterase (NEGATIVE) Urine RBC (0-5) /HPF Urine WBC (0-3) /HPF Ur Squamous Epith Cells (<= Few) Urine Bacteria (None Seen) /HPF Urine Casts /LPF Ur Microscopic Review Urine Culture Comments Urine HCG, Qual Nasal Adenovirus (PCR) Nasal B. parapertussis DNA (PCR) Nasal Coronavir 229E PCR Nasal Coronavir HKU1 PCR Nasal Coronavir NL63 PCR Nasal Coronavir OC43 PCR Nasal Enterovir/Rhinovir PCR Nasal Influenza B PCR Nasal Influenza A PCR Nasal Parainfluen 1 PCR Nasal Parainfluen 2 PCR Nasal Parainfluen 3 PCR Nasal Parainfluen 4 PCR Nasal RSV (PCR) Nasal Screen MRSA (PCR) (NEGATIVE) Nasal B.pertussis DNA PCR Nasal C.pneumoniae (PCR) Richard Human Metapneumo PCR Nasal M.pneumoniae (PCR) Nasal SARS-CoV-2 (PCR) Diagnostic Imaging Diagnostic Imaging Results: positive Final report reviewed Assessment/Plan Problem List (1) DKA (diabetic ketoacidosis): Impression: Continue patient on DKA protocol Monitor chemistry., Replace electrolytes as needed. This is a new onset of diabetes, Most likely type II given the family history. Patient's A1c is 13.3. Patient will need close follow-up by scrubber operator as an outpatient. Qualifiers: Diabetes mellitus complication detail: without coma Diabetes mellitus type: other specified (including GINNY) Qualified Code(s): E13.10 - Other specified diabetes mellitus with ketoacidosis without coma (2) Acute pancreatitis: Impression: Pancreatitis at the associated with the onset of diabetes. Continue DKA protocol and IV fluids. Monitor lipase. CT abdomen is negative for Associated Necrosis or abscess of the pancreas (3) Leukocytosis: Impression: Likely reactive due to DKA. No Obvious infectious etiology. Monitor
[2024-08-20] MEDS: POTASSIUM PHOSPHATE 21 MMOL in SODIUM CHLORIDE 0.9% 250 ML IV ONE (16:10)
[2024-08-20] MEDS: INSULIN REGULAR IN 0.9 % NS 100 UNIT/100 ML BAG IV SCH (16:15)
--- NOTE | 2024-08-20 17:40 | XRAY Report ---
PROCEDURE: XR Chest 1V INDICATIONS: pna TECHNIQUE: One view of the chest was acquired. COMPARISON: None FINDINGS: Surgical changes and devices: None. Lungs and pleura: No pleural effusions or pneumothorax. Lungs are clear. Mediastinum: Mediastinal contours appear normal. Heart size is normal. Bones and chest wall: No suspicious bony lesions. Overlying soft tissues appear unremarkable. IMPRESSION: No acute cardiopulmonary findings Reviewed by: Sourav Merrill MD on 08/20/2024 4:39 PM [facility]DT Approved by: Sourav Merrill MD on 08/20/2024 4:39 PM [facility]DT Station ID: [id number]
[2024-08-20 17:45] LABS: CALCIUM 9.3 mg/dL (8.5-10.3); CREATININE 1.3 mg/dL (0.6-1.3); POTASSIUM 3.8 mmol/L (3.5-4.5)
[2024-08-20 18:31] LABS: TRIGLYCERIDES 1291 mg/dL
[2024-08-20 18:37] LABS: BUN - BLOOD UREA NITROGEN 25 mg/dL (6-20); CALCIUM 9.2 mg/dL (8.5-10.3); CARBON DIOXIDE - CO2 22 mmol/L (21-32); CHLORIDE 120 mmol/L (101-111); CREATININE 1.2 mg/dL (0.6-1.3); GFR - MDRD 69 (>89); GLUCOSE 126 mg/dL (74-104); POTASSIUM 3.6 mmol/L (3.5-4.5); SODIUM 150 mmol/L (135-145)
[2024-08-20 19:14] LABS: LDL CHOLESTEROL,DIRECT 35 mg/dL (75-193)
[2024-08-20] MEDS: DEXTROSE 5%-0.45% NACL 1,000 ML IV SCH (19:45)
[2024-08-20 21:28] LABS: CALCIUM 9.1 mg/dL (8.5-10.3); CREATININE 1.2 mg/dL (0.6-1.3); POTASSIUM 3.7 mmol/L (3.5-4.5)
--- NOTE | 2024-08-20 21:53 | PROVIDER PROGRESS NOTE ---
Tactical Response Group Officer Note Tactical Response Group Officer Note Tactical Response Group Officer Note: Hospitalist cross cover Labs reviewed, bicarb 22, anion gap closed x 2. Transition to subcutaneous Lantus 10 units BID + SSI. Noted hypernatremia/hyperchloremia, likely related to IV NS resuscitation, switch to LR.
[2024-08-20] MEDS: INSULIN GLARGINE-YFGN 300 UNIT/3 ML PEN SUBQ ONE (22:16)
[2024-08-20 23:34] LABS: CALCIUM 8.8 mg/dL (8.5-10.3); CREATININE 1.2 mg/dL (0.6-1.3); POTASSIUM 3.8 mmol/L (3.5-4.5)
[2024-08-21] MEDS: LACTATED RINGERS 1,000 ML IV SCH (00:24)
[2024-08-21] MEDS: INSULIN REGULAR, HUMAN 300 UNIT/3 ML PEN SUBQ SCH (00:26)
[2024-08-21 01:43] LABS: CALCIUM 8.8 mg/dL (8.5-10.3); CREATININE 1.2 mg/dL (0.6-1.3); POTASSIUM 3.7 mmol/L (3.5-4.5)
[2024-08-21] MEDS: POTASSIUM CHLOR 10 MEQ/100 ML 10 MEQ/100 ML BAG IV SCH (02:24)
[2024-08-21 05:11] LABS: BASOPHILS # (AUTO) 0.1 10^3/uL (0.0-0.1); BASOPHILS % (AUTO) 0.4 %; EOSINOPHILS % (AUTO) 0.2 %; HCT - HEMATOCRIT 52.3 % (42.0-52.0); HGB - HEMOGLOBIN 17.9 g/dL (14.0-18.0); MEAN CORPUSCULAR HEMOGLOBIN 27.8 pg (27.0-31.0); MEAN CORPUSCULAR HGB CONC 34.2 g/dL (32.0-36.0); MEAN CORPUSCULAR VOLUME 81.2 fL (80.0-94.0); MEAN PLATELET VOLUME 11.7 fL (7.4-11.4); MONOCYTES # (AUTO) 0.7 10^3/uL (0.0-1.0); MONOCYTES % (AUTO) 4.4 %; NEUTROPHILS # (AUTO) 13.5 10^3/uL (1.5-6.6); NEUTROPHILS % (AUTO) 82.6 %; PLT - PLATELET COUNT 182 10^3/uL (130-450); RED BLOOD COUNT 6.44 10^6/uL (4.70-6.10); RED CELL DISTRIBUTION WIDTH 14.3 % (12.0-15.0); WHITE BLOOD COUNT 16.3 x10^3/uL (4.8-10.8)
[2024-08-21 05:18] LABS: CALCIUM, IONIZED 1.14 mmol/L (1.15-1.33); VBG PH 7.375 (7.31-7.41)
[2024-08-21 05:30] LABS: CREATININE 1.2 mg/dL (0.6-1.3); MAGNESIUM 2.3 mg/dL (1.7-2.3); PHOSPHORUS 2.1 mg/dL (2.5-5.0); POTASSIUM 4.3 mmol/L (3.5-4.5)
[2024-08-21] MEDS: INSULIN REGULAR, HUMAN 300 UNIT/3 ML PEN IVP ONE (06:46)
[2024-08-21] MEDS: NEUTRA-PHOS 250 MG TABLET PO SCH (08:33)
[2024-08-21] MEDS: INSULIN LISPRO 300 UNIT/3 ML PEN SUBQ SCH ×3 (08:45→17:00)
[2024-08-21] MEDS ORDERED: INSULIN GLARGINE-YFGN 300 UNIT/3 ML PEN SUBQ SCH (09:00)
[2024-08-21] MEDS ORDERED: POTASSIUM PHOSPHATE 15 MMOL in SODIUM CHLORIDE 0.9% 250 ML IV ONE (09:00)
--- NOTE | 2024-08-21 09:17 | PROVIDER PROGRESS NOTE ---
Subjective Prog Note Date Prog Note Date: 08/21/24 Prog Note Time: 09:10 Subjective Pt reports feeling: Improved Subjective: 34 Y old male with no significant PMH came with c/o nausea, vomiting, for about 1 week Denies fever, RAINEY, chest pain, SOB,abdominal pain , diarrhea, constipation, symptoms On presntation, pt was tachycardic Labs showed blood glucose > 1300, HCO3 10, anion gap 27, lipase > 1000 CT abdomen and pelvis showed no acute findings In ER, pt was given IVF and started on insulin gtt per DKA protocol Pt is admitted due to DKA and acute pancreatitis Patient's family reports that here is a family history of diabetes. Father and younger brother Both have diabetes type 2. 08/20/2024: Patient still obtunded and lethargic. But he is slowly improving. 08/21/2024: Patient states finally waking up. States that he very hungry and thirsty. Current Medications Current Medications Current Medications: Current Medications Generic Name Dose Route Start Last Admin Trade Name Freq PRN Reason Stop Dose Admin Dextrose/Sodium Chloride 1,000 mls @ 150 mls/hr 08/20/24 19:00 08/21/24 01:09 D5.45ns IV Not Given .Q6H40M EMILIANA Lactated Ringer's 1,000 mls @ 125 mls/hr 08/20/24 22:00 08/21/24 08:32 Lr IV 125 mls/hr .Q8H EMILIANA Administration Insulin Glargine-yfgn 10 unit 08/21/24 09:00 Insulin Glargine-Yfgn 300 Unit/3 Ml Pen SUBQ DAILY EMILIANA Insulin Human Lispro 2 - 10 unit 08/21/24 09:00 08/21/24 08:45 Insulin Lispro 300 Unit/3 Ml Pen SUBQ 10 unit Q4HR EMILIANA Administration Protocol Morphine Sulfate 2 mg 08/20/24 02:58 08/20/24 06:16 Morphine 2 Mg/Ml Carpuject IVP 2 mg Q6H PRN Administration prn pain >8 Ondansetron HCl 4 mg 08/20/24 02:37 Ondansetron 4 Mg/2 Ml Vial IVP Q6HR PRN Nausea / Vomiting Sodium Chloride 10 ml 08/20/24 09:00 08/21/24 08:50 Sodium Chloride Flush 0.9% 10 Ml Syringe IVP 10 ml 0100,0900,1700 EMILIANA Administration Sodium Chloride 10 ml 08/20/24 02:37 Sodium Chloride Flush 0.9% 10 Ml Syringe IVP PRN PRN NEEDED PER PROVIDER ORDERS Sodium Phosphate 250 mg 08/21/24 08:00 08/21/24 08:33 Neutra-Phos 250 Mg Tablet PO 08/21/24 10:01 250 mg Q2H EMILIANA Administration Objective Vital Signs/Intake & Output Reviewed Vital Signs: Yes Vital Signs: Vital Signs x48h Temp Pulse Resp BP Pulse Ox O2 Flow Rate 08/21/24 08:00 36.6 C 110 H 18 122/75 95 08/21/24 07:00 79 32 H 131/75 H 97 25 08/21/24 06:45 112 H 15 112/79 92 08/21/24 05:00 102 H 18 125/80 96 08/21/24 04:00 36.6 C 108 H 19 117/65 96 08/21/24 03:00 110 H 16 117/77 94 08/21/24 02:00 109 H 21 127/77 94 Intake & Output: Intake & Output 08/19/24 08/20/24 08/21/24 08/22/24 05:59 05:59 05:59 05:59 Intake Total 3215 / 3215 3628 / 3628 1400 / 1400 Output Total 2125 / 2125 825 / 825 Balance 1090 / 1090 2803 / 2803 1400 / 1400 Weight (kg) 92 kg 92 kg 94 kg Objective General Appearance: positive No acute distress and Alert Eyes Bilateral: positive Normal inspection and PERRL ENT: positive ENT inspection nml and Pharynx nml Neck: positive Nml inspection and Trachea midline Respiratory: positive Chest non-tender and No respiratory distress Cardiovascular: positive No murmur, No gallop and Other (Sinus tach) Abdomen: positive Non-tender, No organomegaly and No distention Skin: positive Color nml, No rash and Warm Extremities: positive Non-tender and Full ROM Neurologic/Psychiatric: positive Oriented x3, CN's nml (2-12) and Other Lab Results 08/21/24 04:36 08/21/24 04:36 Other Labs: Lab Results x24hrs 08/21/24 08/21/24 08/21/24 Range/Units 08:33 06:08 04:36 WBC 16.3 H (4.8-10.8) x10^3/uL RBC 6.44 H (4.70-6.10) 10^6/uL Hgb 17.9 (14.0-18.0) g/dL Hct 52.3 H (42.0-52.0) % MCV 81.2 (80.0-94.0) fL MCH 27.8 (27.0-31.0) pg MCHC 34.2 (32.0-36.0) g/dL RDW 14.3 (12.0-15.0) % Plt Count 182 (130-450) 10^3/uL MPV 11.7 H (7.4-11.4) fL Neut # (Auto) 13.5 H (1.5-6.6) 10^3/uL Lymph # (Auto) 2.0 (1.5-3.5) 10^3/uL Daniels # (Auto) 0.7 (0.0-1.0) 10^3/uL Eos # (Auto) 0.0 (0.0-0.7) 10^3/uL Baso # (Auto) 0.1 (0.0-0.1) 10^3/uL Absolute Nucleated RBC 0.00 x10^3/uL Nucleated RBC % 0.0 /100WBC VBG pH 7.375 (7.31-7.41) Ionized Calcium 1.14 L (1.15-1.33) mmol/L Sodium 145 (135-145) mmol/L Potassium 4.3 (3.5-4.5) mmol/L Chloride 113 H (101-111) mmol/L Carbon Dioxide 18 L (21-32) mmol/L Anion Gap 14.0 H (6-13) BUN 26 H (6-20) mg/dL Creatinine 1.2 (0.6-1.3) mg/dL Estimated GFR (MDRD) 69 L (>89) Glucose 392 H (74-104) mg/dL POC Whole Bld Glucose 364 389 (70-100) mg/dL Calcium 9.0 (8.5-10.3) mg/dL Phosphorus 2.1 L (2.5-5.0) mg/dL Magnesium 2.3 (1.7-2.3) mg/dL Triglycerides mg/dL LDL Cholesterol Direct (75-193) mg/dL dLDL/HDL Ratio Lipase 155 H (11-82) U/L 08/21/24 08/21/24 08/20/24 Range/Units 01:25 00:06 23:14 WBC (4.8-10.8) x10^3/uL RBC (4.70-6.10) 10^6/uL Hgb (14.0-18.0) g/dL Hct (42.0-52.0) % MCV (80.0-94.0) fL MCH (27.0-31.0) pg MCHC (32.0-36.0) g/dL RDW (12.0-15.0) % Plt Count (130-450) 10^3/uL MPV (7.4-11.4) fL Neut # (Auto) (1.5-6.6) 10^3/uL Lymph # (Auto) (1.5-3.5) 10^3/uL Daniels # (Auto) (0.0-1.0) 10^3/uL Eos # (Auto) (0.0-0.7) 10^3/uL Baso # (Auto) (0.0-0.1) 10^3/uL Absolute Nucleated RBC x10^3/uL Nucleated RBC % /100WBC VBG pH (7.31-7.41) Ionized Calcium (1.15-1.33) mmol/L Sodium 148 H 149 H (135-145) mmol/L Potassium 3.7 3.8 (3.5-4.5) mmol/L Chloride 118 H 119 H (101-111) mmol/L Carbon Dioxide 20 L 21 (21-32) mmol/L Anion Gap 10.0 9.0 (6-13) BUN 25 H 24 H (6-20) mg/dL Creatinine 1.2 1.2 (0.6-1.3) mg/dL Estimated GFR (MDRD) 69 L 69 L (>89) Glucose 273 H 188 H (74-104) mg/dL POC Whole Bld Glucose 229 (70-100) mg/dL Calcium 8.8 8.8 (8.5-10.3) mg/dL Phosphorus (2.5-5.0) mg/dL Magnesium (1.7-2.3) mg/dL Triglycerides mg/dL LDL Cholesterol Direct (75-193) mg/dL dLDL/HDL Ratio Lipase (11-82) U/L 08/20/24 08/20/24 08/20/24 Range/Units 23:09 21:07 20:59 WBC (4.8-10.8) x10^3/uL RBC (4.70-6.10) 10^6/uL Hgb (14.0-18.0) g/dL Hct (42.0-52.0) % MCV (80.0-94.0) fL MCH (27.0-31.0) pg MCHC (32.0-36.0) g/dL RDW (12.0-15.0) % Plt Count (130-450) 10^3/uL MPV (7.4-11.4) fL Neut # (Auto) (1.5-6.6) 10^3/uL Lymph # (Auto) (1.5-3.5) 10^3/uL Daniels # (Auto) (0.0-1.0) 10^3/uL Eos # (Auto) (0.0-0.7) 10^3/uL Baso # (Auto) (0.0-0.1) 10^3/uL Absolute Nucleated RBC x10^3/uL Nucleated RBC % /100WBC VBG pH (7.31-7.41) Ionized Calcium (1.15-1.33) mmol/L Sodium 151 H (135-145) mmol/L Potassium 3.7 (3.5-4.5) mmol/L Chloride 120 H* (101-111) mmol/L Carbon Dioxide 22 (21-32) mmol/L Anion Gap 9.0 (6-13) BUN 23 H (6-20) mg/dL Creatinine 1.2 (0.6-1.3) mg/dL Estimated GFR (MDRD) 69 L (>89) Glucose 104 (74-104) mg/dL POC Whole Bld Glucose 144 134 (70-100) mg/dL Calcium 9.1 (8.5-10.3) mg/dL Phosphorus (2.5-5.0) mg/dL Magnesium (1.7-2.3) mg/dL Triglycerides mg/dL LDL Cholesterol Direct (75-193) mg/dL dLDL/HDL Ratio Lipase (11-82) U/L 08/20/24 08/20/24 08/20/24 Range/Units 20:02 19:05 18:07 WBC (4.8-10.8) x10^3/uL RBC (4.70-6.10) 10^6/uL Hgb (14.0-18.0) g/dL Hct (42.0-52.0) % MCV (80.0-94.0) fL MCH (27.0-31.0) pg MCHC (32.0-36.0) g/dL RDW (12.0-15.0) % Plt Count (130-450) 10^3/uL MPV (7.4-11.4) fL Neut # (Auto) (1.5-6.6) 10^3/uL Lymph # (Auto) (1.5-3.5) 10^3/uL Daniels # (Auto) (0.0-1.0) 10^3/uL Eos # (Auto) (0.0-0.7) 10^3/uL Baso # (Auto) (0.0-0.1) 10^3/uL Absolute Nucleated RBC x10^3/uL Nucleated RBC % /100WBC VBG pH (7.31-7.41) Ionized Calcium (1.15-1.33) mmol/L Sodium (135-145) mmol/L Potassium (3.5-4.5) mmol/L Chloride (101-111) mmol/L Carbon Dioxide (21-32) mmol/L Anion Gap (6-13) BUN (6-20) mg/dL Creatinine (0.6-1.3) mg/dL Estimated GFR (MDRD) (>89) Glucose (74-104) mg/dL POC Whole Bld Glucose 118 129 125 (70-100) mg/dL Calcium (8.5-10.3) mg/dL Phosphorus (2.5-5.0) mg/dL Magnesium (1.7-2.3) mg/dL Triglycerides mg/dL LDL Cholesterol Direct (75-193) mg/dL dLDL/HDL Ratio Lipase (11-82) U/L 08/20/24 08/20/24 08/20/24 Range/Units 17:53 17:13 16:02 WBC (4.8-10.8) x10^3/uL RBC (4.70-6.10) 10^6/uL Hgb (14.0-18.0) g/dL Hct (42.0-52.0) % MCV (80.0-94.0) fL MCH (27.0-31.0) pg MCHC (32.0-36.0) g/dL RDW (12.0-15.0) % Plt Count (130-450) 10^3/uL MPV (7.4-11.4) fL Neut # (Auto) (1.5-6.6) 10^3/uL Lymph # (Auto) (1.5-3.5) 10^3/uL Daniels # (Auto) (0.0-1.0) 10^3/uL Eos # (Auto) (0.0-0.7) 10^3/uL Baso # (Auto) (0.0-0.1) 10^3/uL Absolute Nucleated RBC x10^3/uL Nucleated RBC % /100WBC VBG pH (7.31-7.41) Ionized Calcium (1.15-1.33) mmol/L Sodium 150 H (135-145) mmol/L Potassium 3.6 (3.5-4.5) mmol/L Chloride 120 H* (101-111) mmol/L Carbon Dioxide 22 (21-32) mmol/L Anion Gap 8.0 (6-13) BUN 25 H (6-20) mg/dL Creatinine 1.2 (0.6-1.3) mg/dL Estimated GFR (MDRD) 69 L (>89) Glucose 126 H (74-104) mg/dL POC Whole Bld Glucose 174 224 (70-100) mg/dL Calcium 9.2 (8.5-10.3) mg/dL Phosphorus (2.5-5.0) mg/dL Magnesium (1.7-2.3) mg/dL Triglycerides 1291 mg/dL LDL Cholesterol Direct 35 L (75-193) mg/dL dLDL/HDL Ratio TNP Lipase (11-82) U/L 08/20/24 08/20/24 08/20/24 Range/Units 15:01 14:15 14:12 WBC (4.8-10.8) x10^3/uL RBC (4.70-6.10) 10^6/uL Hgb (14.0-18.0) g/dL Hct (42.0-52.0) % MCV (80.0-94.0) fL MCH (27.0-31.0) pg MCHC (32.0-36.0) g/dL RDW (12.0-15.0) % Plt Count (130-450) 10^3/uL MPV (7.4-11.4) fL Neut # (Auto) (1.5-6.6) 10^3/uL Lymph # (Auto) (1.5-3.5) 10^3/uL Daniels # (Auto) (0.0-1.0) 10^3/uL Eos # (Auto) (0.0-0.7) 10^3/uL Baso # (Auto) (0.0-0.1) 10^3/uL Absolute Nucleated RBC x10^3/uL Nucleated RBC % /100WBC VBG pH (7.31-7.41) Ionized Calcium (1.15-1.33) mmol/L Sodium 147 H (135-145) mmol/L Potassium 3.8 3.8 (3.5-4.5) mmol/L Chloride 116 H (101-111) mmol/L Carbon Dioxide 20 L (21-32) mmol/L Anion Gap 11.0 (6-13) BUN 25 H (6-20) mg/dL Creatinine 1.3 (0.6-1.3) mg/dL Estimated GFR (MDRD) 63 L (>89) Glucose 308 H (74-104) mg/dL POC Whole Bld Glucose 250 316 (70-100) mg/dL Calcium 9.3 (8.5-10.3) mg/dL Phosphorus 1.1 L (2.5-5.0) mg/dL Magnesium 2.5 H (1.7-2.3) mg/dL Triglycerides mg/dL LDL Cholesterol Direct (75-193) mg/dL dLDL/HDL Ratio Lipase (11-82) U/L 08/20/24 08/20/24 08/20/24 Range/Units 13:12 12:07 11:09 WBC (4.8-10.8) x10^3/uL RBC (4.70-6.10) 10^6/uL Hgb (14.0-18.0) g/dL Hct (42.0-52.0) % MCV (80.0-94.0) fL MCH (27.0-31.0) pg MCHC (32.0-36.0) g/dL RDW (12.0-15.0) % Plt Count (130-450) 10^3/uL MPV (7.4-11.4) fL Neut # (Auto) (1.5-6.6) 10^3/uL Lymph # (Auto) (1.5-3.5) 10^3/uL Daniels # (Auto) (0.0-1.0) 10^3/uL Eos # (Auto) (0.0-0.7) 10^3/uL Baso # (Auto) (0.0-0.1) 10^3/uL Absolute Nucleated RBC x10^3/uL Nucleated RBC % /100WBC VBG pH (7.31-7.41) Ionized Calcium (1.15-1.33) mmol/L Sodium (135-145) mmol/L Potassium (3.5-4.5) mmol/L Chloride (101-111) mmol/L Carbon Dioxide (21-32) mmol/L Anion Gap (6-13) BUN (6-20) mg/dL Creatinine (0.6-1.3) mg/dL Estimated GFR (MDRD) (>89) Glucose (74-104) mg/dL POC Whole Bld Glucose 332 357 385 (70-100) mg/dL Calcium (8.5-10.3) mg/dL Phosphorus (2.5-5.0) mg/dL Magnesium (1.7-2.3) mg/dL Triglycerides mg/dL LDL Cholesterol Direct (75-193) mg/dL dLDL/HDL Ratio Lipase (11-82) U/L 08/20/24 08/20/24 Range/Units 10:00 08:40 WBC (4.8-10.8) x10^3/uL RBC (4.70-6.10) 10^6/uL Hgb (14.0-18.0) g/dL Hct (42.0-52.0) % MCV (80.0-94.0) fL MCH (27.0-31.0) pg MCHC (32.0-36.0) g/dL RDW (12.0-15.0) % Plt Count (130-450) 10^3/uL MPV (7.4-11.4) fL Neut # (Auto) (1.5-6.6) 10^3/uL Lymph # (Auto) (1.5-3.5) 10^3/uL Daniels # (Auto) (0.0-1.0) 10^3/uL Eos # (Auto) (0.0-0.7) 10^3/uL Baso # (Auto) (0.0-0.1) 10^3/uL Absolute Nucleated RBC x10^3/uL Nucleated RBC % /100WBC VBG pH (7.31-7.41) Ionized Calcium (1.15-1.33) mmol/L Sodium (135-145) mmol/L Potassium 4.1 (3.5-4.5) mmol/L Chloride (101-111) mmol/L Carbon Dioxide (21-32) mmol/L Anion Gap (6-13) BUN (6-20) mg/dL Creatinine (0.6-1.3) mg/dL Estimated GFR (MDRD) (>89) Glucose (74-104) mg/dL POC Whole Bld Glucose 358 (70-100) mg/dL Calcium (8.5-10.3) mg/dL Phosphorus (2.5-5.0) mg/dL Magnesium (1.7-2.3) mg/dL Triglycerides mg/dL LDL Cholesterol Direct (75-193) mg/dL dLDL/HDL Ratio Lipase (11-82) U/L Diagnostic Imaging Diagnostic Imaging Results: positive Final report reviewed Assessment/Plan Problem List (1) DKA (diabetic ketoacidosis): Impression: Patient awake and alert. Decub recall has completed. Start patient on Lantus 10 units This a.m. with short acting meal coverage. Based on 24 insulin coverage adjust Lantus daily. Patient needs urgent outpatient follow-up with php web developer. Antibody test for IAA, ICA, RUBIN, IA-2 and IA-2-beta, or ZnT8A pleasant in 85 to 90% of new onset diabetes type 1. This is a new onset of diabetes, Most likely type II given the family history. Patient's A1c is 13.3. Patient will need close follow-up by php web developer as an outpatient. Qualifiers: Diabetes mellitus complication detail: without coma Diabetes mellitus type: other specified (including GINNY) Qualified Code(s): E13.10 - Other specified diabetes mellitus with ketoacidosis without coma (2) Acute pancreatitis: Impression: Pancreatitis is associated with the onset of diabetes. Patient Triglycerides Are highly elevated at 1291. Elevated triglycerides a consequence of diabetes type 2 or it can be a driving force for DM2 and acute pancreatitis. Monitoring Triglycerides as an outpatient. Lipase has decreased from greater than 1000 to [address] abdomen is negative for Associated Necrosis or abscess of the pancreas (3) Leukocytosis: Impression: Likely reactive due to DKA. No Obvious infectious etiology. Chest x-ray negative for any cardiopulmonary issues No abx at this time Monitor
[2024-08-21] MEDS: INSULIN GLARGINE-YFGN 300 UNIT/3 ML PEN SUBQ SCH (10:41)
[2024-08-21] MEDS ORDERED: SODIUM CHLORIDE FLUSH 0.9% 10 ML SYRINGE IVP PRN (15:34)
[2024-08-22 04:58] LABS: CALCIUM, IONIZED 1.14 mmol/L (1.15-1.33); VBG PH 7.395 (7.31-7.41)
[2024-08-22 04:59] LABS: BASOPHILS # (AUTO) 0.1 10^3/uL (0.0-0.1); BASOPHILS % (AUTO) 0.5 %; EOSINOPHILS # (AUTO) 0.1 10^3/uL (0.0-0.7); EOSINOPHILS % (AUTO) 1.4 %; HCT - HEMATOCRIT 44.7 % (42.0-52.0); HGB - HEMOGLOBIN 15.2 g/dL (14.0-18.0); LYMPHOCYTES # (AUTO) 2.2 10^3/uL (1.5-3.5); LYMPHOCYTES % (AUTO) 23.3 %; MEAN CORPUSCULAR HEMOGLOBIN 27.3 pg (27.0-31.0); MEAN CORPUSCULAR VOLUME 80.4 fL (80.0-94.0); MEAN PLATELET VOLUME 11.8 fL (7.4-11.4); MONOCYTES # (AUTO) 0.6 10^3/uL (0.0-1.0); MONOCYTES % (AUTO) 6.2 %; NEUTROPHILS # (AUTO) 6.3 10^3/uL (1.5-6.6); NEUTROPHILS % (AUTO) 68.4 %; PLT - PLATELET COUNT 120 10^3/uL (130-450); RED BLOOD COUNT 5.56 10^6/uL (4.70-6.10); RED CELL DISTRIBUTION WIDTH 13.4 % (12.0-15.0); WHITE BLOOD COUNT 9.2 x10^3/uL (4.8-10.8)
[2024-08-22 05:15] LABS: CALCIUM 8.5 mg/dL (8.5-10.3); CREATININE 0.9 mg/dL (0.6-1.3); PHOSPHORUS 2.6 mg/dL (2.5-5.0); POTASSIUM 3.6 mmol/L (3.5-4.5)
[2024-08-22] MEDS: POTASSIUM CHLORIDE 20 MEQ TABLET PO ONE (08:26)
[2024-08-22 09:25] LABS: TRIGLYCERIDES 677 mg/dL
[2024-08-22] MEDS: INSULIN GLARGINE-YFGN 300 UNIT/3 ML PEN SUBQ SCH (09:47)
[2024-08-22 10:01] LABS: LDL CHOLESTEROL,DIRECT 73 mg/dL (75-193)
--- NOTE | 2024-08-22 11:20 | Discharge Summary ---
Discharge Summary Admit Date: 08/20/24 Discharge Date: 08/22/24 Discharging Provider: Dr. Bonny Eli Discharge Facility Name: Home DIAGNOSES Discharge Diagnoses with Status of Each Condition: DKAresolved Acute pancreatitisresolved Nausea, vomitingresolved Hyponatremiaresolved Dehydrationresolved Acute kidney injuryresolved New onset diabetes mellitusspoke with dietitian, will be going home on long acting and short acting insulin. Advised to follow-up with lead caregiver as well as primary care physician. Advised to keep sugar log, check sugars fasting n the morning, as well as with meals and bring in log to primary care physician and lead caregiver office. Also advised to work on dietary changes including a low-fat, low carbohydrate diet. HPI History of Present Illness: Per Dr. 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 At this time, he was complaining of nausea, vomiting for approximately 1 week. He denied any fevers, headaches, chest pain. Lab work showed blood glucose greater than 1300, anion gap was 27, lipase was also greater than 1000. Triglycerides were checked, and they were around 1200. Abdominal pelvis/CT was done which showed no significant pancreas abnormality, and was negative for hydronephrosis. Patient was placed in the ICU, and treated for DKA. He was transitioned out of DKA. He was started on insulin glargine 20 units in the morning, as well as short acting insulin 8 units with meals, and sliding scale on top of that. Nutrition did speak with the patient, and he was advised on low carbohydrate, low-fat meals. Patient's son father and himself are spoken with extensively about lifestyle modifications including increasing physical activity and dietary changes that are required. Patient will be discharged on short acting and long-acting insulin. He was advised to keep a sugar log, and follow-up very closely with his primary care physician and an lead caregiver in the outpatient setting. ALLERGIES Allergies Allergy/AdvReac Type Severity Reaction Status Date / Time No Known Drug Allergies Allergy Verified 08/19/24 22:42 MEDICATIONS Ambulatory Orders Medication Instructions Recorded Confirmed blood-glucose meter (Blood Glucose #1 ea 08/22/24 Monitoring kit) insulin glargine-yfgn 100 unit/mL 30 unit (0.3 mL) subcut HS #15 mL 08/22/24 (3 mL) subcutaneous pen insulin lispro 100 unit/mL 10 unit (0.1 mL) subcut ACHS #15 mL 08/22/24 subcutaneous pen (Humalog KwikPen (U-100) Insulin) pen needle, diabetic 29 gauge x #100 ea 08/22/24 1/" PHYSICAL EXAM AT DISCHARGE General Appearance: positive No acute distress; negative Anxious or Lethargic Eyes Bilateral: positive Normal inspection, PERRL and Conjunctivae nml ENT: positive ENT inspection nml, Pharynx nml and No signs of dehydration Neck: positive Nml inspection, Thyroid nml and Trachea midline Respiratory: positive Chest non-tender, No respiratory distress and Breath sounds nml; negative Wheezes, Rales or Rhonchi Cardiovascular: positive No murmur and No gallop Abdomen: positive Non-tender, No organomegaly, Nml bowel sounds and No distention; negative Tenderness, Guarding, Rebound, Hepatomegaly, Splenomegaly or Mass Back: positive Nml inspection Skin: positive Color nml, No rash and Warm; negative Dry Extremities: positive Non-tender, Full ROM, No pedal edema and Pedal edema Neurologic/Psychiatric: positive Oriented x3 and Motor nml LABS 08/22/24 04:17 08/22/24 04:17 DIAGNOSTIC IMAGING Diagnostic Imaging Results: Final report reviewed Diagnostic Imaging Results Comments: Abdominal CT showed no significant pancreas abnormality, no dilated loops of small bowels, and is negative for hydronephrosis. Chest x-ray showed no acute cardiopulmonary findings. FOLLOW UP Follow Up: Patient advised extensively to follow-up with his primary care physicianhe will need to establish care with one. He was also advised to follow-up with lead caregiver. TIME SPENT Time Spent in Discharge (Minutes): 30 Discharge Plan Discharge Patient Disposition: 01 Home, Self Care Condition: Critical Prescriptions: New insulin lispro [Humalog KwikPen Insulin] 100 unit/mL Insulin Pen 10 unit subcut ACHS Qty: 15 0RF insulin glargine-yfgn 100 unit/mL (3 mL) Insulin Pen 30 unit subcut HS Qty: 15 0RF (DME) blood-glucose meter [Blood Glucose Monitoring] Kit See Rx Instructions .Route Qty: 1 0RF Rx Instructions: As directed (DME) pen needle, diabetic 29 gauge x 1/2" needle See Rx Instructions .Route Qty: 100 0RF Rx Instructions: As directed Activity Restrictions: Activity as Tolerated Diet: Diabetic Health Concerns: You came in a few days ago vomiting, with an upset stomach, and feeling very nauseous. Initially, lab work showed that you are in a diabetic crisis called diabetic ketoacidosis. You have not seen a primary care physician in a few years, so this came as a surprise. We checked what your A1c was, which we explained was an average of your sugars over the last few months. Yours was high at 13.3. You are familiar with diabetes as it runs in the family, including your father, who was present during our discussion. When he first arrived, you were placed on a insulin drip, as well as IV fluids. At this time, your sugars are improving, although they do remain high. We talked about the difference between long-acting insulin and short acting insulin. I will be discharging you home on long-acting insulin, 30 units at night, which I want you to start tomorrow evening, on 08/23, as you already received your long-acting insulin today. You will also be sent home on short acting insulin, 10 units 3 times a day. I want you to keep a glucose log, or check your sugars in the morning, as well as before meals, and bring it in to your next doctor appointment, whether it is with your primary care physician or lead caregiver. I have sent in a prescription for a blood glucose monitor as well as pen needles. Your triglycerides, which is a type of fat were also elevated. They did decrease during your stay from 1200 to 677. I want you to follow-up with your primary care physician about this, so they can to continue to trend. We will not start you on any medications for this at this time. I advised that you do follow a low carbohydrate, as well as a low-fat diet. It will be really important for you to follow a strict diet plan, as well as increase your physical activity. Additionally, it is of utmost importance that you follow-up with your primary care physician, and eventually with an lead caregiver. If you feel nauseous, or vomiting, have abdominal pain, please feel free to return for further treatment. Thank you for allowing us to take care of you. Care Plan Goals: Work on diet and exercise, bring down A1c, follow up with primary care physician and lead caregiver. Plan of Treatment: 1. Take 30 units long-acting insulin at night, 10 units short acting insulin with meals. 2. Keep a glucose log. 3. Follow-up with lead caregiver and primary care physician. Print Language: Czech Patient Instructions: Diabetes Activity Tips, Diabetes Check Blood Sugar Ch, Diabetes Carbs Fats Protein Stand Alone Forms: PCP List Follow-up Care: Garland Proctor MD [Physician No Access] -
[2024-08-22 14:21] VITALS: O2SAT 90
== END 2024-08-22 14:30 | disposition home or self-care (01) | DRG 637 ==
LOC: ED 22:37 → ICU 08-20 02:37
PROVIDERS: ADMIT Internal Medicine; ATTEND Internal Medicine
DX: Z20.828 Contact with and (suspected) exposure to other viral communicable diseases; F17.210 Nicotine dependence, cigarettes, uncomplicated; D72.829 Elevated white blood cell count, unspecified; Z79.4 Long term (current) use of insulin; E87.1 Hypo-osmolality and hyponatremia; N17.9 Acute kidney failure, unspecified; Z20.822 Contact with and (suspected) exposure to COVID-19; Z83.3 Family history of diabetes mellitus; E87.8 Other disorders of electrolyte and fluid balance, not elsewhere classified; R94.31 Abnormal electrocardiogram [ECG] [EKG]; Z20.818 Contact with and (suspected) exposure to other bacterial communicable diseases; E13.10 Other specified diabetes mellitus with ketoacidosis without coma; K85.90 Acute pancreatitis without necrosis or infection, unspecified; E86.0 Dehydration; E78.1 Pure hyperglyceridemia